=== PATIENT | female | born 1985 | race African-American/Black ===

== ENCOUNTER 2023-05-14 00:17 | Emergency (ER) | payer OTHER ==
[2023-05-14 00:35] VITALS: BMI 49.6
[2023-05-14] MEDS ORDERED: LACTATED RINGERS SOLUTION 1000 ML INFUS.BAG IV ONE (00:43)
[2023-05-14] MEDS ORDERED: ALBUTEROL SO4 2.5/IPRATROPIUM 0.5 INH SOL 3 ML VIAL.NEB. NEB ONE (00:43)
[2023-05-14 01:36] LABS: BASO % 1.3 % (0-2.0); EOS % 1.6 % (0-4.5); HEMATOCRIT 36.8 % (32.4-45.2); HEMOGLOBIN 12.2 GM/dL (10.7-15.3); LYMPH % 35.8 % (8-40); MCH 25.9 pg (25.7-33.7); MCHC 33.3 g/dl (32.0-36.0); MEAN CELL VOLUME 77.9 fl (80-96); MEAN PLT VOLUME 8.2 fl (7.5-11.1); MONO % 10.4 % (3.8-10.2); NEUT % 50.9 % (42.8-82.8); PLATELET COUNT 379 10^3/uL (134-434); RBC 4.72 M/mm3 (3.60-5.2); RDW 14.7 % (11.6-15.6); WHITE BLOOD COUNT 8.7 K/mm3 (4.0-10.0)
[2023-05-14 01:46] LABS: POTASSIUM 4.1 mmol/L (3.5-5.1)
[2023-05-14 01:48] LABS: ALBUMIN 3.4 g/dl (3.4-5.0); CALCIUM 9.2 mg/dL (8.5-10.1)
[2023-05-14 01:49] LABS: BLOOD UREA NITROGEN 19.2 mg/dL (7-18)
[2023-05-14 01:53] LABS: BILIRUBIN,TOTAL 0.2 mg/dL (0.2-1)
[2023-05-14 02:51] VITALS: BP 126/82; PULSE 82; RESP 17; TEMP 98.9
== END 2023-05-14 03:50 | disposition home or self-care (01) ==
LOC: JER 00:17
PROC: 3E0F7GC Introduction of Other Therapeutic Substance into Respiratory Tract, Via Natural or Artificial Opening (ICD-10-PCS; principal; 2023-05-14)
DX: R42 Dizziness and giddiness (principal); R05.9 Cough, unspecified; Z20.822 Contact with and (suspected) exposure to COVID-19
CPT/HCPCS: 0241U-QW; 36415; 71046-TC-FY; 80053; 84703; 85025; 93005; 93010; 99285-25